=== PATIENT | female | born 1945 | race Two or more races ===

== ENCOUNTER → 2020-04-04 14:36 | Outpatient (CLI) | payer MEDICARE, SELFPAY ==
--- NOTE | 2020-04-04 14:40 | CA_ITS ---
APPROVED REPORT EXAM: Comprehensive 2D, Doppler, and color-flow Echocardiogram Environmental Services Worker: RADHA Callahan Ht: 5 ft 7 in Wt: 168lbs BSA: 1.88 BP: 106/62 mmHg Indications: A-FIB, CAD, PACER, CHF Echo Enhancing Agent Comments: Poor acoustic windows 2D Dimensions IVSd 0.71 cm F: 0.6-1.0 LVEF (Visual) 58.40 % PWd 0.81 cm F: 0.6 - 1.0 LA Volume 65.40 mL LVDd 4.31 cm F: 3.9 - 5.3 LA Volume Index 34.97 mL/m2 (M/F) 16-34 LVDs 2.99 cm F: 2.2 - 3.5 Aortic Root 2.60 cm F: 2.7 - 3.3 Left Atrium 3.35 cm F: 2.7 - 3.8 LVOT 1.83 cm (M/F) 1.5-2.5 M-Mode Dimensions LA Diam 4.41 cm (1.9-4.0) Ao Diam 2.94 cm (2.0-3.7) EPSs 1.55 cm LV Diastology E Decel Time 180.00 (160-240 msec) E/A Ratio 5.4 Aortic Valve AO Peak GR. 3.90 mmHg Mitral Valve MV E Max Rafa. 109.00 (40-130 cm/s) MV A Velocity 20.00 (40-130 cm/s) E/A Ratio 5.38 MV Decel. Time 180.00 (160-240 ms) MV PHT 53.00 ms Pulmonary Valve PV Peak Velocity 72.00 (50-150 cm/s) Tricuspid Valve TR P. Velocity 287.00 cm/s RAP Estimate 10.00 mmHg RVSP 43.00 mmHg Left Ventricle Left atrium is mildly enlarged, left ventricle is normal size, mild concentric left ventricular hypertrophy, visually estimated ejection fraction 55% with no regional wall motion abnormality, diastolic parameters are inconclusive. Right Ventricle Right atrium and right ventricle are mildly enlarged with normal contractility, there is pacemaker leads in the right ventricle. Aortic Valve Aortic valve is minimally thickened and fibrosed, there is no aortic stenosis or aortic insufficiency. Mitral Valve Mitral valve leaflets are minimally thickened, there is mild mitral regurgitation. Tricuspid Valve There is mild to moderate tricuspid regurgitation noted, calculated right ventricular systolic pressure 36 mmHg. Pulmonic Valve Pulmonic valve is poorly visualized. Great Vessels Aortic root is normal size. Pericardium No significant pericardial effusion noted Conclusion 1. Biatrial enlargement, normal left ventricular size, mild concentric left ventricular hypertrophy, visually estimated ejection fraction 55%, there is abnormal septal motion, diastolic parameters are inconclusive. 2. Mild mitral and tricuspid regurgitation, calculated right ventricular systolic pressure 36 mmHg. 3. No significant pericardial effusion noted. Electronically signed by : Zaid Eldridge, 04/05/2020 14:06:04
== END ==
PROVIDERS: PCP Nurse Practitioner Family; Visit Provider Urology
DX: E78.5 Hyperlipidemia, unspecified (principal); I10 Essential (primary) hypertension; I25.10 Atherosclerotic heart disease of native coronary artery without angina pectoris; I48.91 Unspecified atrial fibrillation; Z95.0 Presence of cardiac pacemaker
CPT/HCPCS: 93306